=== PATIENT | female | born 2000 | race African-American/Black ===

== ENCOUNTER 2021-09-15 21:53 | Emergency (ER) | payer OTHER ==
[2021-09-15] MEDS ORDERED: predniSONE 20 MG TAB ONE (23:05)
== END 2021-09-15 23:10 | disposition home or self-care (01) ==
LOC: BURERS 21:53
DX: U07.1 COVID-19 (principal)
CPT/HCPCS: 71045; 87804; J7512; U0003; U0005

== ENCOUNTER 2021-11-18 06:27 | Emergency (ER) | payer BC, OTHER | END 2021-11-18 07:46 | disposition home or self-care (01) | LOC: BURERS 06:27 | DX: O99.513 Diseases of the respiratory system complicating pregnancy, third trimester (principal); J06.9 Acute upper respiratory infection, unspecified; Z3A.28 28 weeks gestation of pregnancy | CPT/HCPCS: 99283 ==